=== PATIENT | female | born 1990 | race Caucasian/White ===

== ENCOUNTER 2025-08-15 11:33 | Inpatient (IN) | payer OTHER, SELFPAY ==
--- NOTE | ~2025-08-15 | XR_ITS ---
EXAMINATION: XR WRIST, RIGHT CLINICAL INFORMATION: pain, trauma COMPARISON: None available. TECHNIQUE: PA, lateral, oblique, and scaphoid views of the right wrist. FINDINGS: The bones and soft tissues are normal. No fracture. Alignment is anatomic with normal joint spaces. No erosions or abnormal soft tissue calcifications. XR/XR wrist RT min 3V IMPRESSION: Unremarkable right wrist. Electronically signed by: Elio Calles MD 08/15/2025 12:33 PM EDT
--- NOTE | ~2025-08-15 | XR_ITS ---
EXAMINATION: XR HAND, RIGHT CLINICAL INFORMATION: pain, trauma COMPARISON: None available. TECHNIQUE: PA, lateral, and oblique views of the right hand. FINDINGS: The bones and soft tissues are normal. No fracture. Alignment is anatomic. Joint spaces are maintained. No erosions or soft tissue calcifications. XR/XR hand RT min 3V IMPRESSION: Unremarkable right hand. Electronically signed by: Elio Calles MD 08/15/2025 12:35 PM EDT
[2025-08-15 11:35] VITALS: BP 141/86; BP 147/74; PULSE 106; PULSE 120; RESP 20; TEMP 36.6; O2SAT 96; O2SAT 97; BMI 39.2
--- NOTE | 2025-08-15 11:50 | ED.PSYCH ---
HPI - Psych General Chief Complaint: Psychiatric Symptoms Stated Complaint: Crisis, SI with plan, R wrist injury Time Seen by Provider: 08/15/25 11:34 Source: patient, EMS and old records reviewed Mode of arrival: EMS Limitations: no limitations History of Present Illness ED Provider: CORNELL CHANCE Narrative: 35 yo female with PMH of autism and bipolar here with c/o SI and intial HI towards sister but she denies this now. She had a fight with sister and it escalated - sister brought her to police station she was sectioned. No overdose, no cutting but hit her R wrist and hand repeatedly against car window. She denies any other injury. She is compliant with medications. She is R handed. complaint: suicidal ideation and feels depressed Onset (ago): day(s) Duration: getting worse History of same: Yes Relieving factors: none Exacerbating factors: other Context: significant life stressor Associated psychiatric symptoms: depression and suicidal ideation Associated symptoms: denies other symptoms Treatments prior to arrival: placed on mental health hold If self harm: admits thoughts of self harm, has plan and self-inflicted trauma Related Data Home Medications ?Medication ?Instructions ?Recorded ?Confirmed amlodipine 10 mg tablet 10 mg PO DAILY 08/15/25 08/15/25 atorvastatin 10 mg tablet 10 mg PO DAILY 08/15/25 08/15/25 cariprazine 6 mg capsule (Vraylar) 6 mg PO QAM 08/15/25 08/15/25 hydroxyzine HCl 50 mg tablet 50 mg PO QID PRN anxiety 08/15/25 08/15/25 insulin glargine 100 unit/mL (3 35 unit subcut BID 08/15/25 08/15/25 mL) subcutaneous pen (Lantus Solostar U-100 Insulin) insulin lispro 100 unit/mL See Protocol subcut QIDACHS 08/15/25 08/15/25 subcutaneous solution lorazepam 0.5 mg tablet 0.5 mg PO BID 08/15/25 08/15/25 metformin 500 mg tablet 1,000 mg PO BID 08/15/25 08/15/25 ondansetron HCl 4 mg tablet 4 mg PO Q8H PRN nausea 08/15/25 08/15/25 oxcarbazepine 150 mg tablet 450 mg PO BID 08/15/25 08/15/25 sertraline 50 mg tablet 50 mg PO DAILY 08/15/25 08/15/25 Allergies Allergy/AdvReac Type Severity Reaction Status Date / Time No Known Allergies Allergy Verified 08/15/25 11:51 Review of Systems Review of Systems: Constitutional : No Fever, No Chills ENT/Mouth : No Ear Pain, No Nasal Congestion, No sore throat Eyes: No Eye Pain, No Swelling, No Redness Cardiovascular : No Chest Pain, No SOB Respiratory : No Cough, No Sputum, No Dyspnea Gastrointestinal : No Nausea, No Vomiting, No Diarrhea, No Hematochezia, No Melena Genitourinary : No Dysuria, No Urinary Frequency, No Hematuria Musculoskeletal : No Myalgias Skin : No Skin Lesions, No rash Neuro : No Weakness, No Numbness, No Paresthesias, No Dizziness, No Headache Psych : positive Anxiety, positive Depression, positive SI no HI All other systems reviewed and are negative [facility] Past Medical History Attestation statement: The following information was validated with the patient. Source: old records reviewed Medical History Bipolar 1 disorder Autism Social History Social History (Updated 08/15/25 @ 11:59 by Rafaela Villaseñor DO) Patient Tobacco Use Status: Tobacco use Unknown Advance Directives: No Advance Directives Information Provided: No Do you have a plan to hurt others: No Plan Physical Exam Vital Signs: Vital Signs: Last Vital Signs Temp 98.0 F 08/16/25 10:30 Pulse 88 08/16/25 10:30 Resp 16 08/16/25 10:30 BP 159/82 H 08/16/25 10:30 Pulse Ox 96 08/16/25 10:30 O2 Del Method Room Air 08/16/25 10:30 BMI result Body Mass Index 39.2 Appearance: Alert. Oriented X3. No acute distress. Eyes: Pupils equal, round and reactive to light. ENT: Pharynx normal. Neck: Normal inspection. Neck supple. CVS: Normal heart rate and rhythm. Pulses normal. Respiratory: No respiratory distress. Breath sounds normal. Abdomen: Soft and nontender. Skin: Skin warm and dry. Normal skin color. Normal skin turgor. Extremities: No lower extremity edema. arms and legs have uninfected pick waller on them, R hand and wrist ttp mild swelling on ulnar styloid - distal NV intact Neuro: Oriented X 3. No motor deficit. No sensory deficit. CN2-12 intact Course Course Course Narrative: Time: 07:19 Date: 08/16/25 Provider: Rafaela Villaseñor, DO Patient in physician observation for psychiatric evaluation.? No acute events reported overnight. No current complaints. VS stable.? Patient is in bed search status. Will continue to monitor. Reevaluation(s) Reevaluation #1: physician observation ended admitted inpatient 08/16/25 CORNELL 113pm Medications Administered Generic Name Dose Route Start Last Admin Trade Name Estivenq PRN Reason Stop Dose Admin Amlodipine Besylate 10 mg 08/16/25 09:00 08/16/25 10:12 Amlodipine Besylate 10 Mg Tablet PO 10 mg DAILY REGGIE Administration Protocol Atorvastatin Calcium 10 mg 08/16/25 09:00 08/16/25 10:13 Atorvastatin Calcium 10 Mg Tablet PO 10 mg DAILY REGGIE Administration Cariprazine 6 mg 08/16/25 09:00 08/16/25 10:12 Cariprazine Hcl 3 Mg Capsule PO 6 mg DAILY REGGIE Administration Cefuroxime Axetil 250 mg 08/15/25 12:45 08/16/25 10:12 Cefuroxime Axetil 250 Mg Tablet PO 08/22/25 12:44 250 mg BID REGGIE Administration Insulin Glargine 35 unit 08/15/25 23:00 08/16/25 10:13 Insulin Glargine,Hum.Rec.Anlog 100 Unit/Ml 10 Ml Vial SUBCUT 35 unit BID REGGIE Administration Insulin Human Lispro 0 unit 08/16/25 07:30 08/16/25 12:39 Insulin Lispro 100 Unit/Ml 3 Ml Vial SUBCUT Not Given QIDACHS [facility] Protocol Lorazepam 0.5 mg 08/15/25 23:00 08/16/25 10:12 Lorazepam 0.5 Mg Tablet PO 0.5 mg BID REGGIE Administration Magnesium Oxide 800 mg 08/15/25 12:45 08/16/25 10:12 Magnesium Oxide 400 Mg Tablet PO 08/18/25 12:44 800 mg DAILY REGGIE Administration Metformin HCl 1,000 mg 08/16/25 08:00 08/16/25 10:12 Metformin Hcl 1,000 Mg Tablet PO 1,000 mg BIDWM REGGIE Administration Oxcarbazepine 450 mg 08/15/25 23:00 08/16/25 10:12 Oxcarbazepine 150 Mg Tablet PO 450 mg BID REGGIE Administration Sertraline HCl 50 mg 08/16/25 09:00 08/16/25 10:13 Sertraline Hcl 50 Mg Tablet PO 50 mg DAILY REGGIE Administration Discontinued Medications Generic Name Dose Route Start Last Admin Trade Name Wendy PRN Reason Stop Dose Admin Lorazepam 1 mg 08/15/25 11:48 08/15/25 12:05 Lorazepam 1 Mg Tablet PO 08/15/25 11:49 1 mg ONCE ONE Administration Oxcarbazepine 300 mg 08/15/25 23:00 08/16/25 10:12 Oxcarbazepine 300 Mg Tablet PO 300 mg BID REGGIE Administration Medical Decision Making Medical Decision Making MDM Narrative: 35 yo female with PMH of autism and bipolar here with c/o R wrist and hand pain post hitting window but also c/o SI and resolved HI on S12 - will need labs, xray and CARE team consult Differential Diagnosis Differential Diagnoses: The differential diagnosis associated with the presentation includes SI, adjustment reaction, contusion Admission/Observation Consideration of admission/observation: Escalation of care including admission/observation considered physician observation started at 12pm pending CARE team Consult Healthcare Provider Management of the patient was discussed with: Behavioral Health Provider Lab Data [facility] Lab Attestation statement: I reviewed the patient's lab results. WBC count elevated but I have no baseline has UTI but no symptoms no vomiting no flank pain will dose with ceftin and monitor tachycardia elevated due to patient crying and upset on arrival, she is afebrile 08/15/25 12:04 08/15/25 12:04 Labs: Lab Results 08/15/25 08/16/25 Range/Units 12:04 10:23 WBC 18.6 H (4.8-10.8) X10*3/uL RBC 5.06 (4.20-5.50) X10*6/uL Hgb 13.7 (12.0-16.0) g/dl Hct 39.5 (37.0-47.0) % MCV 78.1 L (80.0-98.0) fL MCH 27.1 (27.0-33.0) pg MCHC 34.7 (31.0-35.0) g/dl RDW 14.2 (11.0-16.0) % Plt Count 396 (160-400) X10*3/uL MPV 8.3 L (9.4-12.3) fL Immature Gran % (Auto) 0.5 H (0.0-0.4) % Neut % (Auto) 85.0 H (45-73) % Lymph % (Auto) 8.7 L (20-40) % [place]lee % (Auto) 4.5 (2-11) % Eos % (Auto) 1.0 (0-4) % Baso % (Auto) 0.3 (0-2) % Lymph # (Auto) 1.6 (1.2-4.9) X10*3/uL [place]lee # (Auto) 0.8 (0.1-1.2) X10*3/uL Eos # (Auto) 0.2 (0.0-0.4) X10*3/uL Baso # (Auto) 0.1 (0.0-0.2) X10*3/uL Abs Immat Gran (auto) 0.09 H (0.00-0.03) X10*3/uL Absolute Neuts (auto) 15.8 H (2.0-8.3) x10*3/uL Absolute Nucleated RBC 0.000 (0.0-0.012) X10*3/uL Nucleated RBC % (auto) 0.0 (0.0-0.2) /100WBC Sodium 139 (135-145) mmol/L Potassium 4.0 (3.3-5.1) mmol/L Chloride 107 (96-108) mmol/L Carbon Dioxide 22 (22-29) mmol/L Anion Gap 14 (12-20) BUN 11 (9-16) mg/dL Creatinine 0.65 (0.5-1.4) mg/dL Estim Creat Clear Calc 142.9 Estimated GFR > 60 POC Glucose 113 (60-115) mg/dL Random Glucose 238 H (60-115) mg/dL Calcium 8.9 (8.4-10.2) mg/dL Magnesium 1.5 L (1.6-2.6) mg/dL Total Bilirubin 0.2 (0.0-1.0) mg/dL Direct Bilirubin < 0.2 (0.0-0.5) mg/dL AST 23 (5-31) U/L ALT 21 (0-31) U/L Alkaline Phosphatase 117 (39-117) U/L Total Protein 7.2 (6.5-8.0) g/dL Albumin 4.0 (3.5-5.0) g/dL Urine Color Dark Yellow Urine Appearance Turbid Urine pH 5.0 (5.0-9.0) Ur Specific [place] >= 1.030 H (1.005-1.025) Urine Protein 100 (2+) H (Neg-Trace) mg/dL Urine Glucose (UA) 250 H (Negative) mg/dL Urine Ketones Trace (Negative) mg/dL Urine Blood Large (3+) H (Negative) Urine Nitrite Positive H (Negative) Ur Leukocyte Esterase Moderate (2+) H (Negative) Urine RBC 3-5 H (0-2) /HPF Urine WBC >50 H (0-5) /HPF Ur Squamous Epith Cells 11-20 (0-2) /HPF Calcium Oxalate Crystal Present Urine Bacteria 2+ (None Seen) Hyaline Casts 3-5 (0-2) /LPF Urine Test NEGATIVE (NEGATIVE) Urine Opiates Screen Not Detected (Not Detect) Ur Buprenorphine Scrn Not Detected (Not Detect) ng/mL Ur Oxycodone Screen Not Detected (Not Detect) ng/mL Urine Methadone Screen Not Detected (Not Detect) ng/mL Urine Fentanyl Screen Not Detected (Not Detect) Ur Barbiturates Screen Not Detected (Not Detect) Ur Phencyclidine Scrn Not Detected (Not Detect) Ur Amphetamines Screen Not Detected (Not Detect) U Benzodiazepines Scrn Not Detected (Not Detect) Urine Cocaine Screen Not Detected (Not Detect) U Marijuana (THC) Screen Not Detected (Not Detect) Ethyl Alcohol < 10 mg/dL Independent Interpretation I performed an independent interpretation of an: Plain X-Ray (no fx) Radiology Impression Discussion of test interpretation with radiology: I have reviewed the radiologist's reading. Independent Historian Clinical information obtained from an independent historian. History obtained from or confirmed by: EMS Discharge Plan Discharge Clinical Impression: Suicidal ideation, Acute UTI Elevated WBC count Qualifiers: Leukocytosis type: unspecified Qualified Code(s): D72.829 - Elevated white blood cell count, unspecified Patient Disposition: Admitted As Inpatient Interventions: [place]-Suicide Risk Severity Scale Last Done: 08/15/25 13:24
[2025-08-15 12:10] LABS: MANUAL DIFF FLAG NO
[2025-08-15 12:12] LABS: Hematocrit 39.5 % (37.0-47.0); Hemoglobin 13.7 g/dl (12.0-16.0); Imm Gran Abs Auto 0.09 X10*3/uL (0.00-0.03); Imm Gran Pct Auto 0.5 % (0.0-0.4); Lymphocytes Absolute Auto 1.6 X10*3/uL (1.2-4.9); Mean Corpuscular HGB Conc 34.7 g/dl (31.0-35.0); Mean Corpuscular Hemoglobin 27.1 pg (27.0-33.0); Mean Corpuscular Volume 78.1 fL (80.0-98.0); NRBC Abs Auto 0.000 X10*3/uL (0.0-0.012); NRBC Pct Auto 0.0 /100WBC (0.0-0.2); Platelet Count 396 X10*3/uL (160-400); Red Blood Count 5.06 X10*6/uL (4.20-5.50); White Blood Count 18.6 X10*3/uL (4.8-10.8)
[2025-08-15 12:15] LABS: Appearance Urine Turbid; Glucose Urine UA 250 mg/dL (Negative); PH 5.0 (5.0-9.0); Specific Gravity - Urine >= 1.030 (1.005-1.025); UMIC TRIGGER UACC YES
[2025-08-15 12:17] LABS: UPreg QC Valid YES
[2025-08-15 12:23] LABS: Cannabinoid Screen Urine Not Detected (Not Detect)
[2025-08-15 12:25] LABS: Alanine Aminotransferase 21 U/L (0-31); Albumin Level 4.0 g/dL (3.5-5.0); Alkaline Phosphatase 117 U/L (39-117); Anion Gap 14 (12-20); Aspartate Amino Transferase 23 U/L (5-31); Blood Urea Nitrogen 11 mg/dL (9-16); Calcium 8.9 mg/dL (8.4-10.2); Carbon Dioxide 22 mmol/L (22-29); Chloride 107 mmol/L (96-108); Creatinine Clr Calc Pharmacy 142.9; Estimated Glomerular Filt Rate > 60; Magnesium 1.5 mg/dL (1.6-2.6); Potassium 4.0 mmol/L (3.3-5.1); Sodium 139 mmol/L (135-145); Total Protein 7.2 g/dL (6.5-8.0); UACC Culture Trigger YES
--- NOTE | 2025-08-15 13:37 | ECG_ITS ---
Test Reason : CHECK QTC Blood Pressure : */* mmHG Vent. Rate : 86 BPM Atrial Rate : 86 BPM P-R Int : 132 ms QRS Dur : 92 ms QT Int : 382 ms P-R-T Axes : 40 0 28 degrees QTcB Int : 457 ms Normal sinus rhythm Normal ECG No previous ECGs available Referred By: Rafaela Villaseñor Electronically Signed By: TALISHA SANTAMARIA MD
[2025-08-15 14:00] VITALS: PULSE 106; RESP 20; TEMP 36.6
--- OUTSIDE RECORDS SUMMARY | 2025-08-15 14:34 | XMS_ITS | Data Portability ---
Author Organization [facility], Main Office Address [address], [address] [place] [address] Care Team Providers Care Electrical Apprentice Name Role Phone WENCESLAO MAGANA OTHER [phone] Assessment No assessment recorded. Plan of Treatment Reminders Order Date Submit Date Provider Last Modified By Organization Details Last Modified Time Details Appointments None record ed. Lab None record ed. Referral None record ed. Procedures None record ed. Surgeries None record ed. Imaging None record ed. Medication Orders None record ed. Patient TargetsNo targets recorded. Patient InstructionsNo instructions recorded. Reason for Referral None Reported. Problems Name Problem SNOMED Code Status Onset Date Resolution Date Notes Provider Name and Address Organization Details Recorded Time Flank pain 733382931 Active 2022 Justine Melendezifel, SYSTEMS SOFTWARE SPECIALIST [address], [address], [place], [address], [facility] 3 12:41:39 Pyelonephritis 72792653 Active 2022 Justine Melendezifel, SYSTEMS SOFTWARE SPECIALIST [address], [address], [place], [address], [facility] 3 12:42:37 Type 2 diabetes mellitus 65673582 Active 2022 Justine Melendezifel, SYSTEMS SOFTWARE SPECIALIST [address], [address], [place], [address], [facility] 3 12:47:16 Bipolar disorder 70026117 Active 2022 Justine Hartmanl, SYSTEMS SOFTWARE SPECIALIST [address], [address], [place], [address], [facility] [employer] [facility] 3 12:47:39 Autistic disorder of childhood onset 24376093 Active 2022 Justine Johnson, SYSTEMS SOFTWARE SPECIALIST [address], [address], [place], [address], [facility] 3 12:48:20 Essential hypertension 85041854 Active 2022 KEIKO Reyes [address], [address], [place], [address], [facility] 3 13:50:05 Hyperlipidemia 33536684 Active [address]P [address], [address], [place], [address], [facility] 3 13:50:14 Chronic anxiety 526060708 Active 2022 KEIKO Reyes [address], [address], [place], [address], [facility] [employer] 3 14:08:05 At increased risk for falls 159445850 Active 2022 KEIKO Reyes [address], [address], [place], [address], [facility] 3 14:11:09 Female hirsutism 91883658 Active 2022 William Concepcion MD [address], [place], [address], [facility] 3 11:01:07 Problem Notes None recorded. Procedures Surgical History Date Name Laterality Status Provider Name and Address Organization Details Recorded Time drainage of dental abscess completed KEIKO Reyes [address], [address], [place], [address], [facility] 03/11/2023 13:43:47 Imaging Results None recorded. Procedure Notes None recorded. Medical Equipment None Reported. Allergies Allergen ID Allergen Name Allergen Category Reaction Reaction Severity Criticality Documentation Date Start Date Code Code System Note Provider Name and Address Organization Details Recorded Time 29278 iodine medicatio n Not available Not available Not available 03/11/2023 5933 RxNorm RITA ReyesP [address], [address], [place], [address], [facility] 3 13:06:56 60774 shellfish derived food,medi cation Not available Not available Not available 03/11/2023 Justine Johnson, SYSTEMS SOFTWARE SPECIALIST [address], [address], [place], [address], [facility] 3 13:07:07 Medications Not known to be on any medication Vitals Date Recorded Heart rate Respiratory rate Body temperature Oxygen saturation Oxygen saturation in Arterial blood by Pulse oximetry Systolic And Diastolic Provider Name and Address Organization Details Last Updated DateTime 80 /min 18 /min 97.7 [degF] 99 % 99 % 136/78 mm[Hg] Justine Johnson, SYSTEMS SOFTWARE SPECIALIST [address], [address], [place], [address], [facility] 3 12:39:50 Date Recorded Systolic And Diastolic Provider Name and Address Organization Details Last Updated DateTime 03/13/2023 134/80 mm[Hg] William Concepcion MD [address] [facility], [address], [place], [address], [facility] 03/13/2023 10:41:12 Social History Question Answer Notes LastModified by Organizat ion Details LastModified Time Tobacco Smoking Status Never Smoker Justine Johnson, SYSTEMS SOFTWARE SPECIALIST [address], [place], [address], [facility] 03/11/2023 13:11:39 Do You Have An Advance Directive? Yes Information not available 03/11/2023 What Is Your Level Of Caffeine Consumption? Occasional Information not available 03/11/2023 What Is Your Code Status? Full Code Information not available 03/11/2023 Where Do You Live? SingleLevelHouse Information not available 03/11/2023 Legal Guardian? No Informati on not available 03/11/2023 Do You Have A Medical Power Of Spa Coordinator? No Information not available 03/11/2023 What Was The Date Of Your Most Recent Tobacco Screening? 03/11/2023 Information not available 03/11/2023 Do You Have An Out Of Hospital DNR? No Information not available 03/11/2023 What Is Your Relationship Status? Single Information not available 03/11/2023 Has Tobacco Cessation Counseling Been Provided? No Information not available 03/11/2023 Do You Have Any Dietary Restrictions? No Information not available 03/11/2023 Sex: Unknown Functional Status Question Answer Note LastModified by Organizat ion Details LastModified Time Do you use any illicit or recreational drugs? No Information not available 03/11/2023 Do you or have you ever used any other forms of tobacco or nicotine? No Information not available 03/11/2023 What is your level of alcohol consumption? None Information not available 03/11/2023 Mental Status Question Answer Note LastModified by Organization D etails LastModified Time Do you feel stressed (tense, restless, nervous, or anxious, or unable to sleep at night)? [id number] Information not available 03/11/2023 Family History Relationship Description Onset Age of this Age Resolved Age Notes LastModified by Organization Details LastModified Time Father Diabetes mellitus [email or web address] Not available 2022 13:14:25 Mother Hypertensive disorder mseifel Not available 2022 13:14:39 Maternal Grandmother Malignant neoplasm of breast mseifel Not available 2022 13:15:07 Paternal Grandfather Myocardial infarction mseifel Not available 03/11 13:15:29 Medical History No medical history recorded. Gynecological HistoryNo gynecological history recorded. Obstetrics History GPAL:G 0 P 0 0 0 0 Immunizations Vaccine Type Date Status Note Provider Nam e and Address Organization Details Recorded Time SARS-COV-2 (COVID-19) vaccine, UNSPECIFIED 1 completed Merry Ospina [facility] 03/11/2023 15:42:10 SARS-COV-2 (COVID-19) vaccine, UNSPECIFIED 1 completed [facility] 03/11/2023 15:42:22 pneumococcal polysaccharide PPV23 9 shahnaz Ospina [facility] 03/11/2023 15:42:37 Tdap 9 shahnaz Ospina [facility] 03/11/2023 15:42:52 Past Encounters Encounter ID Performer Location Encounter Start Date Encounter Closed Date Diagnosis/Indication Diagnosis SNOMED-CT Code Diagnosis ICD10 Code Diagnosis IMO Codes Diagnosis Note [id number] MD WENCESLAO Al [place] [address] [place] [address] 03/11/2023 12:36:14 03/14/2023 11:28:21 Pyelonephritis 48502920 N16 Zosyn 3gm - .375 gm/ 50 ml IV q 8 hrs for 9 days. florastor BID for 12 days. follow up with renal u/s and ID. Type 2 abel betes mellitus 24061178 E11.9 Metformin 1000 mg BID Insulin glargine 45 units daily and check FBS QID with ss lispro insulin trulicity 1.5 mg weekly Sundays. May use [employer] vaughn to monitor FBS. Essential hypertension 34359345 I10 Amlodipine 5 mg daily. Propranolo l 2.5 mg TID monitor labs and VSS Hyperlipidemia 56684473 E78.49 Pravastati n 40 mg daily. Bipolar disorder 0850807 4 F31.9 Trileptal 1200 mg TID Geodon 80 mg qhs and 40 mg daily. Fluoxetine 180 mg daily. May see IR Diagnostyx for evaluation . Autistic d isorder of childhood onset 15768038 F84.0 supportive care. Chronic anxiety 69939887 9 F41.1 hydroxyzin e 50 mg TID prn [facility] risk for falls 285319713 Z91.81 PT and OT fall precaution s in place. William Concepcion MD [facility] [address] [place] [address] 03/13/2023 10:39:51 03/19/2023 13:24:06 Pyelonephritis 87741248 N16 see HPIacute right pyelonephr itisfollow ID recs with f/u in placezosyn 3.375 gm IV q 8 through dd probioticm onitor to resolution Type 2 abel betes mellitus 60601339 E11.9 metformin 1000 mg bidlantus4 5 units qdcontinue out patient medsmonito r blood glucose and need to adjust Essential hypertension 62083454 I10 norvasc 5 mg qdproprano lol 5 mg tidmonitor bp and need to titrate Hyperlipidemia 55000552 E78.49 pravastati n 40 mg qdcontinue d Bipolar disorder 0670442 4 F31.62 ziprasidon e 80 mg qdtrilepta l 600 mg tidmonitor for change in presentati onpsych to eval Autistic d isorder of childhood onset 78375824 F84.0 carrying dxadded to [facility] Chronic anxiety 05498611 9 F41.1 continue out patient medssee abovemonit or for behaviors as adjusts to facility [facility] ed risk for falls 543351802 Z91.81 PT OT eval and treatmonit or fall risk Female hirsutism 1600665 9 L68.0 noted at baseline Health Concerns Section Related Observation LastModified by Organization Detai ls LastModified Time None Recorded Concern Status LastModified by Organization Details LastModified Time None Recorded Advance Directives Directive Y: Payers Insurance Date Sequence Insurance Name Policy Number Policy Tucker Covered Member ID Tucker Member ID Guarantor Name 03/11/2023 1 [facility] (O) [id number] Cheryl York [id number] Cheryl York 03/19/2023 1 [facility] [id number] Cheryl York [id number] Cheryl York 03/12/2023 1 [place] [facility] Cheryl Yokr [id number] Cheryl York Notes Date Note Type Note Provider Name and Address Organization Details Recorded Time 3 text/html Patient is a 32 yo female with a complex history of autism, DM II, bipolar disorder, HLD, HTN, hirsutism, severe obesity, urinary incontinence, and frequent UTI's who was admitted with right flank pain and found to have pyelonephritis. Imaging demonstrates right sided pyelonephritis with a small perinephric fluid collection. She was given 2 weeks of antibiotics without effectiveness so she had a workup with ID and was started on zosyn to be given through March 18. She is here because her family is out of town and cannot assist her at this time. She will need a follow up with ID and a post treatment ultrasound to monitor for improvement in the fluid collection. She has a midline in place.She says she has no pain and is eating and moving her bowels normally. Justine Johnson, SYSTEMS SOFTWARE SPECIALIST [address] [facility], [address], [place], [address], [facility] [employer] 03/11/2023 14:12:16 3 text/html Patient is a 32 yo female admit from hospital after presenting with right flank pain. Dx with pyelonephritis. Eval by ID and started on zosyn to complete 03/18. ID will follow up for small perinephric fluid collection PMH significant fordmhtnhldbipolar dxdepression / anxietyautismrecurrent UTIs admit to facility for continued care and therapy William Concepcion MD [address] [place] [address], [address], [place], [address], [facility] [employer] 03/13/2023 11:02:16 OBGyn Episode No OBEpisode recorded.
--- OUTSIDE RECORDS SUMMARY | 2025-08-15 14:34 | XMS_ITS | Clinical Summary ---
Author Organization [facility] Address [address] [place] [id number] Phone Care Team Providers Care Supervisor Dried Yeast Name Role Phone Pricila Ahuja OVEN TENDER Primary Care Provider [phone] Allergies Active Allergy Reactions Criticality Noted Date Comments Iodine 01/18/2022 Shellfish Containing Products 2020 Medications ziprasidone (GEODON) 60 MG capsule Take 60 mg by mouth every morning. Active metFORMIN (GLUCOPHAGE) 500 MG tablet Take 1,000 mg by mouth 2 (two) times a day with meals. Active OXcarbazepine (TRILEPTAL) 600 MG tablet Take 600 mg by mouth 3 (three) times a day. Active FLUoxetine (PROZAC) 20 MG capsule Take 60 mg by mouth every morning. Active dulaglutide (TRULICITY) 0.75 mg/0.5 mL subcutaneous injection Inject 0.75 mg under the skin every 7 days. Active hydrOXYzine (VISTARIL) 50 MG capsule TAKE 1 CAPSULE BY MOUTH THREE TIMES DAILY NEEDED FOR ANXIETY FOR ANXIETY AND AGITATION 2 Active traZODone (DESYREL) 50 MG tablet TAKE 1 TABLET BY MOUTH DAILY AT BEDTIME NEEDED FOR INSOMNIA 2 Active ziprasidone (GEODON) 80 MG capsule TAKE 1 CAPSULE BY MOUTH DAILY AT BEDTIME 2 Active Active Problems Problem Noted Date Diagnosed Date Aggressive behavior 04/02/2023 JC (obstructive sleep apnea) 05/28/2021 Postnasal drip 11/24/2020 Assessment & Plan (11/24/2020 5:40 PM EST): Discussed ongoing issue. Recommended warm water gargle upon waking. Could also consider allergy medication in the future or Flonase if bothersome. Cheryl reports that nasal sprays tend to be uncomfortable for her, will defer for now. Diabetes Assessment & Plan (11/24/2020 5:36 PM EST): Discussed current treatment plan, referral to a new butter maker. Since her day program will be starting at [facility] we discussed possible referral to [facility]. Will await prior records and refer as indicated. Not currently checking home sugars, monitor has not been an option in the past due to patient not being insulin-dependent. May consider this if available to her in the future. Not able to test at home given fingertip discomfort. Recurrent UTI Assessment & Plan (11/24/2020 5:35 PM EST): Continue follow-up as prescribed with [facility] urology. Autism PCOS (polycystic ovarian syndrome) Assessment & Plan (11/24/2020 5:38 PM EST): Patient has not had a withdrawal bleed in some time. Will review prior records to see if this is indicated. Nephrolithiasis Bipolar disorder Assessment & Plan (11/24/2020 5:38 PM EST): Continue care with [facility] Essential hypertension Assessment & Plan (11/24/2020 5:38 PM EST): Well-managed Immunizations Immunization Administration Dates Next Due COVID-19 (Pre-09/01) Moderna Vaccine, mRNA, PF 04/06/2021,03/09/2021 Influenza Quadrivalent Preservative Free IM 02/2021,11/09/2020,09/07/2019 Pneumococcal polysaccharide PPSV23 09/07/2019 Tdap 07/30/2019 Family History Medical History Relation Comments Arthritis Father Diabetes Father Diabetes Maternal Grandfather Hyperlipidemia Maternal Grandfather Hypertension Maternal Grandfather Tuberculosis Maternal Grandfather Breast cancer Maternal Grandmother Hyperlipidemia Maternal Grandmother Hypertension Maternal Grandmother Anxiety disorder Mother Depression Mother Hypertension Mother Prostate cancer Paternal Grandfather Breast cancer Sister Relation Status Comments Father Alive Maternal Grandfather Maternal Grandmother Mother Alive Nephew Alive Niece Alive Paternal Grandfather Paternal Grandmother Sister Alive Social History Tobacco Use Types Packs/Day Years Used Date Smoking Tobacco: Never Smokeless Tobacco: Never Alcohol Use Standard Drinks/Week Comments Not Currently 0 (1 standard drink = 0.6 oz pur e alcohol) Child or Family Care Answer Date Record ed Do you have problems with on e of the following making it difficult for you to work, study, or receive health care? No 02/12/2021 Education Answer Date Recorded Are you interested in more education? Not on jacky e 03/07/2023 Are you concerned about learning? Not on file 03/07/2023 No 03/07/2023 No 03/07/2023 Food Answer Date Recorded Within the past 6 months we worried whether our food would run out before we got money to buy more. I choose not to answer 02/12/2021 Within the past 6 months the food we bought just didn't last and we didn't have enough money to get more. I choose not to answer 02/12/2021 Paying for Meds Answer Date Recorded Do you have trouble paying for medicines? No 02/12/2021 Paying Utility Bills Answer Date Record ed Do you have trouble paying your heating or elect ricity bill? No 02/12/2021 Transportation Answer Date Recorded Has the lack of transportati on kept you from medical appointments or from getting medications? No 02/12/2021 Digital Access Answer Date Recorded No 04/02/2023 No 04/02/2023 Reliable internet access at home? Not on file 04/02/2023 Device with a working camera? Not on file Intimate Partner Violence Answer Date R ecorded Are you denied basic needs s uch as food, clothing, or medical care? Deferred 04/03/2023 In the past 12 months have y ou been in a relationship with a person who hurts, threatens, or tries to control you? Deferred 04/03/2023 Are you denied basic needs s uch as food, clothing, or medical care? Deferred 04/03/2023 In the past 12 months have y ou been in a relationship with a person who hurts, threatens, or tries to control you? Deferred 04/03/2023 Comments No Sex and Gender Information Value Date Recorded Sex Assigned at Female 04/02/2023 6:25 PM EDT Legal Sex Female 1:16 PM EST Gender Identity Female 04/02/2023 6:25 PM EDT Sexual Orientation Not on file Last Filed Vital Signs Vital Sign Reading Time Taken Comments Blood Pressure 148/89 04/04/2023 7:31 PM EDT Pulse 92 04/04/2023 7:31 PM EDT Temperature 36.4 C (97.5 F) 04/04/2023 7:31 PM EDT Respiratory Rate 18 04/04/2023 7:31 PM EDT Oxygen Saturation 98% 04/04/2023 7:31 PM EDT Inhaled Oxygen Concentration - - Weight 92.1 kg (203 lb) 04/03/2023 8:59 PM EDT Height 162.6 cm (5' 4 ) 04/03/2023 8:59 PM EDT Body Mass Index 34.84 04/03/2023 8:59 PM EDT Plan of Treatment Health Maintenance Due Date Last Done Comments BLOOD PRESSURE 1991 PAP SMEAR 2012 PNEUMOCOCCAL VACCINES (0-49 years) (2 of 2 - PCV) 09/07/2020 09/07/2019 DIABETIC EYE EXAM 11/24/2020 DEPRESSION SCREENING 02/12/2022 02/12/2021 HEMOGLOBIN A1C 06/20/2022 03/20/2022, 07/11, 03/08/2021 LIPID PANEL 03/20/2023 03/20/2022, 03/10, 03/20/2022, Additional history exists URINE MICROALBUMIN/CREATININE RATIO 05/16/2023 05/16/2022 CREATININE LEVEL 04/02/2024 04/02/2023, 09/2022, 07/25/2021, Additional history exists INFLUENZA VACCINE (#1) 2025 , 11/09/2020, 09/07/2019 COVID-19 VACCINE ( season) 2025 04/06/2021, 04/06/2021, 04/06/2021, Additional history exists Adult Td,Tdap Booster 07/30/2029 07/30/2019 SMOKING STATUS SCREENING (Once After 26 Yrs) Completed 01/18/2022 HEPATITIS C SCREENING Completed 03/23/2022, 021 HIV ONE-TIME SCREENING (18-65 YEARS) Completed 03/23/2022 HEPATITIS A VACCINES Aged Out No long er eligible based on patient's age to complete this topic HIB VACCINES Aged Out No longer eligi ble based on patient's age to complete this topic MENINGOCOCCAL VACCINES (ACWY) Aged Out No longer eligible based on patient's age to complete this topic MENINGOCOCCAL VACCINES (B) Aged Out N o longer eligible based on patient's age to complete this topic Medical Devices Not on file Procedures Procedure Name Priority Date/Time Associated Diagnosis Comments BASIC METABOLIC PANEL STAT 04/02/2023 6:49 PM EDT OUTSIDE HIV Routine 03/23/2022 OUTSIDE HEPATITIS C VIRUS SCREENING Routine 03/23/2022 OUTSIDE HEMOGLOBIN A1C Routine 03/20/2022 OUTSIDE HDL Routine 03/20/2022 from Last 3 Months or Most Recently Relevant to Health Maintenance Results * (ABNORMAL) Basic metabolic panel (04/02/2023 6:49 PM EDT) SODIUM 135 133 - 146 mmol/L [facility] CHLORIDE 97 96 - 108 mmol/L [facility] POTASSIUM 4.2 3.3 - 5.1 mmol/L [facility] CO2 23 21 - 35 mmol/L [facility] BUN 12 6 - 19 mg/dL [facility] CREATININE 0.60 0.5 - 1.5 mg/dL [facility] GLUCOSE 226(H) 70 - 99 mg/dL [facility] CALCIUM 9.6 8.4 - 10.3 mg/dL [facility] EGFR >120 >59 mL/min/1.7 3m2 [facility] Comment:Estimated glomerular filtration rate calculated using the CKD-EPI refit equation. ANION GAP 19 10 - 20 mmol/L [facility] Blood 04/02/2023 6:49 PM EDT 04/02/2023 6:53 PM EDT Bernardo Tidwell MD LAB BLOOD ORDERABLES Final Resul t [facility] [address] [place] [address] * Outside Hepatitis C Virus Screening (03/23/2022) Hepatitis C Screening - External Neg Historical Provider LAB BLOOD ORDERABLES [facility] Result * OUTSIDE HIV TEST (03/23/2022) HIV - External Neg [facility] Provider LAB BLOOD ORDERABLES [facility] Result * Outside HbA1c (03/20/2022) Hemoglobin A1c - External 8.2 % Historical Provider LAB BLOOD ORDERABLES [facility] Result * Outside HDL (03/20/2022) HDL - External 42 40 - 80 mg/dL Historical Provider MD LAB BLOOD ORDERABLES [facility] Result from Last 3 Months or Most Recently Relevant to Health Maintenance Insurance [facility] [employer] [facility] [employer] [place] [address] [place] [address] [address] [place] [address] [place] [address] [employer] [facility] [employer] [facility] [employer] ACO Care Teams Supervisor Dried Yeast Relationship Specialty Start Date End Date Pricila Ahuja NP [address] [place] [address] PCP - General Nurse Practitioner 05/27/23 Additional Source Comments The information contained in this document represents components of the legal health record. It is not the complete legal health record.[facility]
[2025-08-15 14:37] VITALS: BP 135/74; PULSE 87; RESP 14; TEMP 36.6; O2SAT 95
--- NOTE | 2025-08-15 19:41 | PC.NURSE ---
Assumed care of PT at 1900. PT resting quietly, eyes closed, respirations even and unlabored.15 minute safety checks remain. Plan of care ongoing
--- NOTE | 2025-08-15 20:59 | PC.NURSE ---
Pt medicated as per JAN. Pt smelling of urine, requesting a brief, States they have a hx of incontinence. triage technicianHoney vazquez provided pt's own incontinence pads from belongings and provided pt with wipe and change of clothes. PT encouraged to void in toilet which she did successfully. gilberto placed on bed. PT now resting quietly in [facility]. Safety precautions in place, [address], video monitoring on, call mata within reach. plan of care ongoing
--- NOTE | 2025-08-15 22:27 | PC.NURSE ---
Insulin pump removed as per ordered by Dr. Martines. Pt also removed CGM. Discussed plan of care with pt regarding sliding scale and lantus at night. Pt states they do not want their POC checked, stated im just going to starve TW noted that even if PT wasn't eating we would still need to check POC to which pt replied i wont let them do it, I'm going to bang my head on the wall if they do. I'm going kill them PT does not have any replacement CGM sensors. Provider notified. Awaiting new orders for sliding scale and lantus
[2025-08-15 23:32] VITALS: BP 157/79; PULSE 84; RESP 17; TEMP 36.5; O2SAT 96
[2025-08-16] MEDS: Insulin Glargine,Hum.rec.anlog 100 UNIT/ML 10 ML VIAL 35 UNIT SUBCUT ×3 (00:33→22:06)
--- NOTE | 2025-08-16 00:42 | PC.NURSE ---
PT medicated as per JAN. Plan of care ongoing
--- NOTE | 2025-08-16 07:40 | PC.NURSE ---
[facility] care, report received. Pt is currently sleeping, safety maintained.
[2025-08-16 08:48] VITALS: RESP 20
[2025-08-16 10:25] LABS: Glucose, Whole Blood 113 mg/dL (60-115)
[2025-08-16 10:30] VITALS: BP 159/82; PULSE 88; RESP 16; TEMP 36.7; O2SAT 96
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
[2025-08-16 14:50] VITALS: BP 144/80; PULSE 91; RESP 16; TEMP 36.6; O2SAT 97
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
[2025-08-16 15:41] VITALS: BMI 38.9
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
[2025-08-16 20:25] LABS: Glucose, Whole Blood 211 mg/dL (60-115)
[2025-08-16 20:33] VITALS: BP 145/66; PULSE 81; RESP 16; TEMP 36.5
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
[2025-08-17 07:49] LABS: Glucose, Whole Blood 150 mg/dL (60-115)
[2025-08-17 08:00] VITALS: BP 135/62; PULSE 83; RESP 16; TEMP 36.4; O2SAT 96
[2025-08-17 08:01] LABS: Hemoglobin A1C 217.4721 umol/L; Total Hemoglobin (HGBA1C) 3688.6400 umol/L
[2025-08-17 08:09] LABS: Alanine Aminotransferase 21 U/L (0-31); Albumin Level 4.2 g/dL (3.5-5.0); Alkaline Phosphatase 109 U/L (39-117); Anion Gap 12 (12-20); Aspartate Amino Transferase 22 U/L (5-31); Blood Urea Nitrogen 9 mg/dL (9-16); Calcium 9.1 mg/dL (8.4-10.2); Carbon Dioxide 26 mmol/L (22-29); Chloride 104 mmol/L (96-108); Cholesterol 137 mg/dL (<200); Creatinine Clr Calc Pharmacy 149.2; Estimated Glomerular Filt Rate > 60; HDL Cholesterol 45 mg/dL (>40); Potassium 4.2 mmol/L (3.3-5.1); Sodium 138 mmol/L (135-145); Total Protein 7.5 g/dL (6.5-8.0); Triglycerides 113 mg/dL (<150)
[2025-08-17] MEDS: Insulin Glargine,Hum.rec.anlog 100 UNIT/ML 10 ML VIAL 35 UNIT SUBCUT ×2 (08:20→20:39)
[2025-08-17 08:23] VITALS: BP 135/66
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
[2025-08-17 20:00] VITALS: BP 148/79; PULSE 81; RESP 16; TEMP 36.8; O2SAT 98
[2025-08-17 20:33] LABS: Glucose, Whole Blood 205 mg/dL (60-115)
[2025-08-18 07:00] VITALS: BMI 38.0
[2025-08-18 07:05] VITALS: BP 140/81; PULSE 84; RESP 14; TEMP 36.7; O2SAT 96
[2025-08-18 07:59] LABS: Glucose, Whole Blood 193 mg/dL (60-115)
[2025-08-18 08:49] VITALS: BP 140/81; PULSE 84; RESP 14; TEMP 36.7; O2SAT 96
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
[2025-08-18] MEDS: Insulin Glargine,Hum.rec.anlog 100 UNIT/ML 10 ML VIAL 35 UNIT SUBCUT (08:54)
[2025-08-18 16:43] LABS: Glucose, Whole Blood 197 mg/dL (60-115)
[2025-08-18 20:00] VITALS: BP 143/78; PULSE 78; RESP 18; TEMP 37.1; O2SAT 97
[2025-08-19 07:33] VITALS: BP 137/89; PULSE 90; RESP 18; TEMP 36.4; O2SAT 96
[2025-08-19 07:49] LABS: Glucose, Whole Blood 224 mg/dL (60-115)
[2025-08-19] MEDS: Insulin Glargine,Hum.rec.anlog 100 UNIT/ML 10 ML VIAL 35 UNIT SUBCUT (08:14)
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
== END 2025-08-19 10:01 | disposition home or self-care (01) | DRG 753 ==
LOC: HO.ED 08-16 12:34 → HO.PADLT16 08-16 12:42
PROVIDERS: Admitting Provider Registered Nurse; Emergency Provider Emergency Medicine; PCP Nurse Practitioner Adult Health; Responsible Provider Registered Nurse; Visit Provider Psychiatry & Neurology Psychiatry
DX: F31.9 Bipolar disorder, unspecified (principal); E11.9 Type 2 diabetes mellitus without complications; R45.851 Suicidal ideations; F84.0 Autistic disorder; I10 Essential (primary) hypertension; N39.0 Urinary tract infection, site not specified; E78.5 Hyperlipidemia, unspecified; Z79.4 Long term (current) use of insulin; Z79.84 Long term (current) use of oral hypoglycemic drugs; Z79.899 Other long term (current) drug therapy
CPT/HCPCS: 36415; 73110; 73130; 80048; 80053; 80061; 80076; 80307; 81001; 81025; 82947; 83036; 83735; 85025; 87086; 87147; 93005; 99285; S9485

== ENCOUNTER → 2025-08-15 11:48 | Outpatient (BNV) | payer OTHER, SELFPAY | PROVIDERS: Emergency Provider Emergency Medicine; PCP Nurse Practitioner Adult Health; Visit Provider Radiology Diagnostic Radiology | DX: M79.641 Pain in right hand (principal); M25.531 Pain in right wrist; W22.8XXA Striking against or struck by other objects, initial encounter | CPT/HCPCS: 73110; 73130 ==

== ENCOUNTER → 2025-08-15 13:37 | Outpatient (BNV) | payer OTHER, SELFPAY | PROVIDERS: Emergency Provider Emergency Medicine; PCP Nurse Practitioner Adult Health; Visit Provider Internal Medicine Cardiovascular Disease | DX: Z13.6 Encounter for screening for cardiovascular disorders (principal) | CPT/HCPCS: 93010 ==

== ENCOUNTER → 2025-08-16 12:07 | Outpatient (BNV) | payer OTHER, SELFPAY | PROVIDERS: Admitting Provider Registered Nurse; Emergency Provider Emergency Medicine; PCP Nurse Practitioner Adult Health; Responsible Provider Registered Nurse; Visit Provider Nurse Practitioner Psychiatric/Mental Health | DX: F31.4 Bipolar disorder, current episode depressed, severe, without psychotic features (principal); R45.851 Suicidal ideations; F84.0 Autistic disorder; N39.0 Urinary tract infection, site not specified | CPT/HCPCS: 99231 ==

== ENCOUNTER → 2025-08-16 12:07 | Outpatient (BNV) | payer OTHER, SELFPAY | PROVIDERS: Admitting Provider Registered Nurse; Emergency Provider Emergency Medicine; PCP Nurse Practitioner Adult Health; Visit Provider Nurse Practitioner Family | DX: E11.9 Type 2 diabetes mellitus without complications (principal); Z79.4 Long term (current) use of insulin | CPT/HCPCS: 99221 ==